=== PATIENT | female | born 1980 | race Two or more races ===

== ENCOUNTER 2019-02-19 23:21 | Inpatient (IN) | payer OTHER ==
[2019-02-20] MEDS ORDERED: NITROGLYCERIN (SL) 0.4 MG TAB SL (02:00)
[2019-02-20] MEDS ORDERED: NACL 0.9% 3 ML SYG IV (02:00)
[2019-02-20 02:24] LABS: ADD MAN DIFF? NO
[2019-02-20 02:25] LABS: ABNORMAL IP MESSAGE 1; BASOPHIL # 0.1 10^3/ul (0.0-0.1); BASOPHILS % 0.5 % (0.0-2.0); EOSINOPHILS # 0.2 10^3/ul (0.0-0.5); EOSINOPHILS % 1.5 % (0.0-7.0); HEMATOCRIT 35.2 % (37.0-47.0); LYMPHOCYTES # 3.1 10^3/ul (0.8-2.9); MEAN CORPUSCULAR HEMOGLOBIN 22.8 pg (29.0-33.0); MEAN CORPUSCULAR HGB CONC 28.4 g/dl (32.0-37.0); MEAN CORPUSCULAR VOLUME 80.4 fl (82.0-101.0); MEAN PLATELET VOLUME 9.4 fl (7.4-10.4); NEUTROPHIL # 6.4 10^3/ul (1.6-7.5); NEUTROPHILS % 59.7 % (39.0-77.0); PLATELET COUNT 242 10^3/UL (140-415); RED BLOOD COUNT 4.38 10^6/ul (4.20-5.40)
[2019-02-20 02:25] LABS: WHITE BLOOD COUNT 10.7 10^3/ul (4.8-10.8)
[2019-02-20 02:44] LABS: POSITIVE DIFF @See below
[2019-02-20 02:46] LABS: ALANINE AMINOTRANSFERASE 16 IU/L (13-69); ALBUMIN 3.2 g/dl (3.3-4.9); ALKALINE PHOSPHATASE 75 IU/L (42-121); ANION GAP 6 (5-13); ASPARTATE AMINO TRANSFERASE 20 IU/L (15-46); BILIRUBIN,INDIRECT 1.5 mg/dl (0-1.1); BILIRUBIN,TOTAL 1.5 mg/dl (0.2-1.3); BLOOD UREA NITROGEN 19 mg/dl (7-20); CALCIUM 8.5 mg/dl (8.4-10.2); CARBON DIOXIDE 27 mmol/L (21-31); CHLORIDE 106 mmol/L (97-110); CHOL/HDL RATIO 3.7 RATIO; CHOLESTEROL 102 mg/dl (100-200); CREATININE 1.55 mg/dl (0.44-1.00); Estimated GFR 37 mL/min (>60); GLUCOSE 98 mg/dl (70-220); HDL CHOLESTEROL 27 mg/dl (34-82); LDL CHOLESTEROL,CALCULATED 61 mg/dl; MAGNESIUM 1.9 mg/dl (1.7-2.5); SODIUM 139 mmol/L (135-144); TOTAL PROTEIN 6.4 g/dl (6.1-8.1); TRIGLYCERIDES 68 mg/dl (0-149)
[2019-02-20 02:46] LABS: HEMOGLOBIN A1C 5.6 % (0-5.9)
[2019-02-20] MEDS: NICOTINE (21 MG/24 HR) PATCH TRANSDERM ×2 (02:49→08:18)
[2019-02-20 03:12] LABS: ETHANOL < 10.0 mg/dl (0-0)
[2019-02-20 03:22] LABS: B-TYPE NATRIURETIC PEPTIDE 5190 PG/ML (0-125)
[2019-02-20 04:08] LABS: HEPATITIS C VIRAL ANTIBODY NEGATIVE (NEGATIVE); HIV 1&2 ANTIBODY NEGATIVE (NEGATIVE)
[2019-02-20 04:09] LABS: HEPATITIS B SURFACE ANTIBODY NEGATIVE (NEGATIVE)
[2019-02-20] MEDS: HEPARIN 5,000 UNIT/1 ML VIAL SC ×3 (05:32→22:26)
[2019-02-20 06:37] LABS: BARBITURATES Negative (NEGATIVE); BENZODIAZEPINES Negative (NEGATIVE); CANNABINOIDS Negative (NEGATIVE); COCAINE Negative (NEGATIVE)
[2019-02-20 06:52] LABS: AMPHETAMINE/METHAMPHETAMINE POSITIVE (NEGATIVE); OPIATES Positive (NEGATIVE)
[2019-02-20] MEDS: LISINOPRIL 20 MG TAB PO (08:14)
[2019-02-20] MEDS: hydrALAzine 20 MG INJ IV (08:15)
[2019-02-20] MEDS: ACETAMINOPHEN 325 MG TAB PO (11:39)
[2019-02-20] MEDS: FUROSEMIDE 20 MG INJ IV (11:39)
[2019-02-20 12:21] LABS: ADD UMIC NO; UR ASCORBIC ACID NEGATIVE (NEGATIVE); UR BILIRUBIN (Dip) NEGATIVE (NEGATIVE); UR BLOOD (Dip) NEGATIVE (NEGATIVE); UR CLARITY CLEAR (CLEAR); UR COLOR YELLOW (YELLOW); UR GLUCOSE (Dip) NEGATIVE (NEGATIVE); UR KETONES (Dip) NEGATIVE (NEGATIVE); UR LEUKOCYTE ESTERASE (Dip) NEGATIVE Leu/ul (NEGATIVE); UR NITRITE (Dip) NEGATIVE (NEGATIVE); UR SPECIFIC GRAVITY (Dip) 1.012 (1.003-1.030); UR TOTAL PROTEIN (Dip) NEGATIVE (NEGATIVE); UR UROBILINOGEN (Dip) NEGATIVE (NEGATIVE)
[2019-02-20 14:57] LABS: RAPID PLASMA REAGIN NONREACTIVE (NR)
[2019-02-20] MEDS: ASPIRIN 81 MG TAB PO (14:59)
[2019-02-20] MEDS: FUROSEMIDE 40 MG INJ IV (17:48)
[2019-02-21] MEDS: HYDROCODONE/APAP (5/325) TAB PO (01:17)
[2019-02-21] MEDS: LEVALBUTEROL (NEB) 1.25 MG/0.5 ML AMP HHN ×2 (01:26→23:31)
[2019-02-21] MEDS: FUROSEMIDE 40 MG INJ IV ×2 (05:33→17:32)
[2019-02-21] MEDS: HEPARIN 5,000 UNIT/1 ML VIAL SC ×2 (05:38→13:45)
[2019-02-21] MEDS: ASPIRIN 81 MG TAB PO (08:11)
[2019-02-21] MEDS: NICOTINE (21 MG/24 HR) PATCH TRANSDERM (08:11)
[2019-02-21] MEDS: LISINOPRIL 20 MG TAB PO (08:11)
[2019-02-21 08:46] LABS: ADD MAN DIFF? NO
[2019-02-21 08:51] LABS: WHITE BLOOD COUNT 12.2 10^3/ul (4.8-10.8)
[2019-02-21 08:51] LABS: BASOPHIL # 0.1 10^3/ul (0.0-0.1); BASOPHILS % 0.4 % (0.0-2.0); EOSINOPHILS # 0.2 10^3/ul (0.0-0.5); EOSINOPHILS % 1.2 % (0.0-7.0); HEMATOCRIT 35.8 % (37.0-47.0); HEMOGLOBIN 10.4 g/dl (12.0-16.0); LYMPHOCYTES # 2.4 10^3/ul (0.8-2.9); LYMPHOCYTES % 19.8 % (15.0-51.0); MEAN CORPUSCULAR HEMOGLOBIN 23.1 pg (29.0-33.0); MEAN CORPUSCULAR HGB CONC 29.1 g/dl (32.0-37.0); MEAN CORPUSCULAR VOLUME 79.6 fl (82.0-101.0); MEAN PLATELET VOLUME 10.1 fl (7.4-10.4); MONOCYTE # 0.9 10^3/ul (0.3-0.9); MONOCYTES % 7.1 % (0.0-11.0); NEUTROPHIL # 8.6 10^3/ul (1.6-7.5); NEUTROPHILS % 71.1 % (39.0-77.0); PLATELET COUNT 261 10^3/UL (140-415); RED CELL DISTRIBUTION WIDTH 18.6 % (11.5-14.5)
[2019-02-21 09:08] LABS: IRON 19 ug/dl (35-150)
[2019-02-21 09:09] LABS: MAGNESIUM 1.6 mg/dl (1.7-2.5)
[2019-02-21 09:13] LABS: ALANINE AMINOTRANSFERASE 16 IU/L (13-69); ALBUMIN 3.2 g/dl (3.3-4.9); ALBUMIN/GLOBULIN RATIO 1.06; ALKALINE PHOSPHATASE 65 IU/L (42-121); ANION GAP 9 (5-13); ASPARTATE AMINO TRANSFERASE 22 IU/L (15-46); BILIRUBIN,INDIRECT 1.1 mg/dl (0-1.1); BILIRUBIN,TOTAL 1.1 mg/dl (0.2-1.3); BLOOD UREA NITROGEN 20 mg/dl (7-20); CALCIUM 8.4 mg/dl (8.4-10.2); CARBON DIOXIDE 33 mmol/L (21-31); CHLORIDE 97 mmol/L (97-110); CREATININE 1.41 mg/dl (0.44-1.00); Estimated GFR 42 mL/min (>60); GLUCOSE 122 mg/dl (70-220); POTASSIUM 3.2 mmol/L (3.5-5.1); SODIUM 139 mmol/L (135-144); TOTAL PROTEIN 6.2 g/dl (6.1-8.1)
[2019-02-21 09:17] LABS: % IRON SATURATION 5 % SAT (22-52); TOTAL IRON BINDING CAPACITY 357 ug/dl (241-421)
[2019-02-21 09:43] LABS: FERRITIN 16.4 ng/ml (6.2-137.0)
[2019-02-21] MEDS: BISACODYL (EC) 5 MG TAB PO ×2 (11:10→14:59)
[2019-02-21] MEDS: POTASSIUM CHLORIDE (SR) 20 MEQ TAB PO (14:45)
[2019-02-21] MEDS: MAGNESIUM SULFATE 2 GM/50 ML 50 ML IVPB (14:45)
[2019-02-21] MEDS: SOD FERRIC GLUC COMPLX 125 MG in SOD CHLORIDE 0.9% 100 ML IVPB (18:45)
[2019-02-22] MEDS: HYDROCODONE/APAP (5/325) TAB PO ×2 (00:56→12:34)
[2019-02-22] MEDS: FUROSEMIDE 40 MG INJ IV (05:05)
[2019-02-22 06:24] LABS: ADD MAN DIFF? NO
[2019-02-22 06:34] LABS: WHITE BLOOD COUNT 13.6 10^3/ul (4.8-10.8)
[2019-02-22 06:34] LABS: BASOPHIL # 0.1 10^3/ul (0.0-0.1); BASOPHILS % 0.4 % (0.0-2.0); EOSINOPHILS # 0.2 10^3/ul (0.0-0.5); EOSINOPHILS % 1.2 % (0.0-7.0); HEMATOCRIT 35.4 % (37.0-47.0); HEMOGLOBIN 10.5 g/dl (12.0-16.0); LYMPHOCYTES % 21.8 % (15.0-51.0); MEAN CORPUSCULAR HGB CONC 29.7 g/dl (32.0-37.0); MEAN CORPUSCULAR VOLUME 77.5 fl (82.0-101.0); MEAN PLATELET VOLUME 9.9 fl (7.4-10.4); MONOCYTES % 7.6 % (0.0-11.0); NEUTROPHIL # 9.4 10^3/ul (1.6-7.5); NEUTROPHILS % 68.7 % (39.0-77.0); PLATELET COUNT 285 10^3/UL (140-415); RED BLOOD COUNT 4.57 10^6/ul (4.20-5.40); RED CELL DISTRIBUTION WIDTH 18.4 % (11.5-14.5)
[2019-02-22 06:50] LABS: ALANINE AMINOTRANSFERASE 17 IU/L (13-69); ALBUMIN 3.3 g/dl (3.3-4.9); ALKALINE PHOSPHATASE 67 IU/L (42-121); ANION GAP 9 (5-13); ASPARTATE AMINO TRANSFERASE 20 IU/L (15-46); BILIRUBIN,INDIRECT 0.9 mg/dl (0-1.1); BILIRUBIN,TOTAL 0.9 mg/dl (0.2-1.3); BLOOD UREA NITROGEN 17 mg/dl (7-20); CALCIUM 8.4 mg/dl (8.4-10.2); CARBON DIOXIDE 31 mmol/L (21-31); CHLORIDE 101 mmol/L (97-110); CREATININE 1.02 mg/dl (0.44-1.00); Estimated GFR > 60 mL/min (>60); GLUCOSE 100 mg/dl (70-220); POTASSIUM 3.3 mmol/L (3.5-5.1); SODIUM 141 mmol/L (135-144); TOTAL PROTEIN 6.6 g/dl (6.1-8.1)
[2019-02-22] MEDS: ASPIRIN 81 MG TAB PO (08:11)
[2019-02-22] MEDS: LISINOPRIL 20 MG TAB PO (08:11)
[2019-02-22] MEDS: NICOTINE (21 MG/24 HR) PATCH TRANSDERM (08:11)
[2019-02-22] MEDS: POTASSIUM CHLORIDE (SR) 20 MEQ TAB PO (10:44)
[2019-02-22] MEDS: SOD FERRIC GLUC COMPLX 125 MG in SOD CHLORIDE 0.9% 100 ML IVPB (12:34)
[2019-02-22] MEDS: DOCUSATE SODIUM 100 MG CAP PO (21:49)
[2019-02-22] MEDS: ACETAMINOPHEN 325 MG TAB PO (21:49)
[2019-02-22] MEDS ORDERED: DOCUSATE SODIUM 100 MG CAP PO (22:00)
[2019-02-23] MEDS: hydrALAzine 20 MG INJ IV ×2 (00:45→01:56)
[2019-02-23] MEDS: HYDROCODONE/APAP (5/325) TAB PO ×3 (01:53→22:37)
[2019-02-23] MEDS: BISACODYL (EC) 5 MG TAB PO (02:27)
[2019-02-23] MEDS: ONDANSETRON 4 MG INJ IV ×2 (02:28→20:04)
[2019-02-23 06:09] LABS: ADD MAN DIFF? NO
[2019-02-23 06:12] LABS: BASOPHIL # 0.1 10^3/ul (0.0-0.1); BASOPHILS % 0.5 % (0.0-2.0); EOSINOPHILS # 0.1 10^3/ul (0.0-0.5); HEMOGLOBIN 10.5 g/dl (12.0-16.0); LYMPHOCYTES # 1.8 10^3/ul (0.8-2.9); LYMPHOCYTES % 14.6 % (15.0-51.0); MEAN CORPUSCULAR HEMOGLOBIN 22.9 pg (29.0-33.0); MEAN CORPUSCULAR HGB CONC 29.2 g/dl (32.0-37.0); MEAN CORPUSCULAR VOLUME 78.6 fl (82.0-101.0); MEAN PLATELET VOLUME 9.7 fl (7.4-10.4); MONOCYTE # 0.8 10^3/ul (0.3-0.9); MONOCYTES % 6.8 % (0.0-11.0); NEUTROPHIL # 9.2 10^3/ul (1.6-7.5); NEUTROPHILS % 76.6 % (39.0-77.0); PLATELET COUNT 266 10^3/UL (140-415); RED BLOOD COUNT 4.58 10^6/ul (4.20-5.40); RED CELL DISTRIBUTION WIDTH 18.5 % (11.5-14.5)
[2019-02-23 06:48] LABS: ALANINE AMINOTRANSFERASE 18 IU/L (13-69); ALBUMIN 3.2 g/dl (3.3-4.9); ALKALINE PHOSPHATASE 74 IU/L (42-121); ANION GAP 8 (5-13); ASPARTATE AMINO TRANSFERASE 22 IU/L (15-46); BILIRUBIN,INDIRECT 0.9 mg/dl (0-1.1); BILIRUBIN,TOTAL 0.9 mg/dl (0.2-1.3); BLOOD UREA NITROGEN 14 mg/dl (7-20); CALCIUM 8.9 mg/dl (8.4-10.2); CARBON DIOXIDE 31 mmol/L (21-31); CHLORIDE 100 mmol/L (97-110); Estimated GFR > 60 mL/min (>60); GLUCOSE 101 mg/dl (70-220); POTASSIUM 3.6 mmol/L (3.5-5.1); SODIUM 139 mmol/L (135-144); TOTAL PROTEIN 6.4 g/dl (6.1-8.1)
[2019-02-23] MEDS: ASPIRIN 81 MG TAB PO (08:07)
[2019-02-23] MEDS: BUMETANIDE 1 MG TAB PO (08:08)
[2019-02-23] MEDS: POTASSIUM CHLORIDE 20 MEQ POWDER FOR ORAL SOLN PO (08:08)
[2019-02-23] MEDS: POLYETHYLENE GLYCOL 17 GM PACKET PO (08:08)
[2019-02-23] MEDS: LISINOPRIL 20 MG TAB PO ×2 (08:08→20:10)
[2019-02-23] MEDS: NICOTINE (21 MG/24 HR) PATCH TRANSDERM (08:09)
[2019-02-23] MEDS: SOD FERRIC GLUC COMPLX 125 MG in SOD CHLORIDE 0.9% 100 ML IVPB (12:26)
[2019-02-23] MEDS: CEFTRIAXONE 1 GM/50 ML (PMX) 50 ML IVPB (17:40)
[2019-02-23] MEDS: AZITHROMYCIN 500MG/NS (PMX) 250 ML IVPB (18:58)
[2019-02-24] MEDS: HYDROCODONE/APAP (5/325) TAB PO ×2 (04:04→11:40)
[2019-02-24 05:59] LABS: ADD MAN DIFF? NO
[2019-02-24 06:04] LABS: WHITE BLOOD COUNT 12.4 10^3/ul (4.8-10.8)
[2019-02-24 06:04] LABS: ABNORMAL IP MESSAGE 1; BASOPHIL # 0.1 10^3/ul (0.0-0.1); BASOPHILS % 0.4 % (0.0-2.0); EOSINOPHILS # 0.2 10^3/ul (0.0-0.5); EOSINOPHILS % 1.4 % (0.0-7.0); HEMATOCRIT 35.8 % (37.0-47.0); HEMOGLOBIN 10.3 g/dl (12.0-16.0); LYMPHOCYTES # 2.6 10^3/ul (0.8-2.9); LYMPHOCYTES % 20.8 % (15.0-51.0); MEAN CORPUSCULAR HEMOGLOBIN 22.7 pg (29.0-33.0); MEAN CORPUSCULAR HGB CONC 28.8 g/dl (32.0-37.0); MEAN CORPUSCULAR VOLUME 78.9 fl (82.0-101.0); MEAN PLATELET VOLUME 9.3 fl (7.4-10.4); MONOCYTES % 8.3 % (0.0-11.0); NEUTROPHIL # 8.6 10^3/ul (1.6-7.5); NEUTROPHILS % 68.9 % (39.0-77.0); PLATELET COUNT 265 10^3/UL (140-415); RED BLOOD COUNT 4.54 10^6/ul (4.20-5.40); RED CELL DISTRIBUTION WIDTH 18.9 % (11.5-14.5)
[2019-02-24 06:22] LABS: POSITIVE DIFF @See below
[2019-02-24 06:56] LABS: ALANINE AMINOTRANSFERASE 20 IU/L (13-69); ALBUMIN 3.4 g/dl (3.3-4.9); ALBUMIN/GLOBULIN RATIO 1.06; ALKALINE PHOSPHATASE 71 IU/L (42-121); ANION GAP 9 (5-13); ASPARTATE AMINO TRANSFERASE 29 IU/L (15-46); BILIRUBIN,INDIRECT 0.9 mg/dl (0-1.1); BILIRUBIN,TOTAL 0.9 mg/dl (0.2-1.3); BLOOD UREA NITROGEN 16 mg/dl (7-20); CALCIUM 8.5 mg/dl (8.4-10.2); CARBON DIOXIDE 28 mmol/L (21-31); CHLORIDE 100 mmol/L (97-110); CREATININE 1.01 mg/dl (0.44-1.00); Estimated GFR > 60 mL/min (>60); GLUCOSE 97 mg/dl (70-220); POTASSIUM 4.3 mmol/L (3.5-5.1); SODIUM 137 mmol/L (135-144); TOTAL PROTEIN 6.6 g/dl (6.1-8.1)
[2019-02-24] MEDS: BUMETANIDE 1 MG TAB PO (08:08)
[2019-02-24] MEDS: NICOTINE (21 MG/24 HR) PATCH TRANSDERM (08:09)
[2019-02-24] MEDS: ASPIRIN 81 MG TAB PO (08:09)
[2019-02-24] MEDS: POLYETHYLENE GLYCOL 17 GM PACKET PO (08:09)
[2019-02-24] MEDS: LISINOPRIL 20 MG TAB PO ×2 (09:00→21:16)
[2019-02-24] MEDS: CEFTRIAXONE 1 GM/50 ML (PMX) 50 ML IVPB (16:41)
[2019-02-24] MEDS: AZITHROMYCIN 500MG/NS (PMX) 250 ML IVPB (17:30)
[2019-02-25] MEDS: HYDROCODONE/APAP (5/325) TAB PO ×3 (00:57→23:26)
[2019-02-25] MEDS: LISINOPRIL 20 MG TAB PO ×2 (07:53→19:40)
[2019-02-25] MEDS: NICOTINE (21 MG/24 HR) PATCH TRANSDERM (07:53)
[2019-02-25] MEDS: ASPIRIN 81 MG TAB PO (07:53)
[2019-02-25] MEDS: POLYETHYLENE GLYCOL 17 GM PACKET PO (07:53)
[2019-02-25] MEDS: BUMETANIDE 1 MG TAB PO (07:53)
[2019-02-25] MEDS ORDERED: VANCOMYCIN IV PER PHARMACY XX (15:30)
[2019-02-25] MEDS: CEFTRIAXONE 1 GM/50 ML (PMX) 50 ML IVPB (17:42)
[2019-02-25] MEDS: VANCOMYCIN HCL 2 GM in SOD CHLORIDE 0.9% 500 ML IVPB (19:04)
[2019-02-26] MEDS: DOCUSATE SODIUM 100 MG CAP PO (01:50)
[2019-02-26] MEDS: VANCOMYCIN HCL 1.5 GM in SOD CHLORIDE 0.9% 250 ML IVPB (06:12)
[2019-02-26] MEDS: BUMETANIDE 1 MG TAB PO (09:06)
[2019-02-26] MEDS: ASPIRIN 81 MG TAB PO (09:07)
[2019-02-26] MEDS: LISINOPRIL 20 MG TAB PO (09:07)
[2019-02-26] MEDS: NICOTINE (21 MG/24 HR) PATCH TRANSDERM (09:07)
[2019-02-26] MEDS: POLYETHYLENE GLYCOL 17 GM PACKET PO (09:07)
[2019-02-26] MEDS: HYDROCODONE/APAP (5/325) TAB PO (09:08)
== END 2019-02-26 14:15 | disposition home or self-care (01) | DRG 280 ==
LOC: 2NE 02-26 01:11 → TEL 23:21
PROVIDERS: Internal Medicine
DX: I13.0 Hypertensive heart and chronic kidney disease with heart failure and stage 1 through stage 4 chronic kidney disease, or unspecified chronic kidney disease (principal); I21.A1 Myocardial infarction type 2; I50.33 Acute on chronic diastolic (congestive) heart failure; I16.1 Hypertensive emergency; N17.9 Acute kidney failure, unspecified; L03.114 Cellulitis of left upper limb; Z68.42 Body mass index [BMI] 45.0-49.9, adult; E66.01 Morbid (severe) obesity due to excess calories; E78.5 Hyperlipidemia, unspecified; N18.9 Chronic kidney disease, unspecified; F15.10 Other stimulant abuse, uncomplicated; F17.200 Nicotine dependence, unspecified, uncomplicated; Z91.14 Patient's other noncompliance with medication regimen; Z79.82 Long term (current) use of aspirin
CPT/HCPCS: 71046; 76830; 76856; 80053; 80061; 80307; 81003; 82306; 82728; 83036; 83540; 83735; 83880; 84443; 84703; 85025; 86592; 86703; 86706; 86803; 87070; 87340; 93306; 94640; 94664